=== PATIENT | female | born 1960 ===

== ENCOUNTER 2019-03-08 16:02 | Outpatient (REF) | payer BC, SELFPAY ==
--- NOTE | 2019-03-08 15:20 | PAPFT_PTH ---
PATIENT: DARREN MAY LOC: [facility] U#:[id number] AGE/SX: 58/F ROOM: RE03/08/[address]: Cynthia Lamar : 1960 BED: DIS: 03/08/2019 SPEC #: [id number] RECD: 03/08/19 17:50 STATUS: DENY REKinsey #: [id number] CHUCKY: 03/08/19 15:[address]: Cynthia Lamar DEPT: [facility] Cytology RECD BY: Kaity Lozano Tissues: 1 - CX/ENDOCX FOR PAP SMEARS Procedures: PAP THIN PREP/[facility] Screening HPV DNA PROBE Comments: [id number]
--- NOTE | 2019-03-08 15:20 | ENDOMET_PTH ---
PATIENT: DARREN MAY LOC: [facility] U#:[id number] AGE/SX: 58/F ROOM: RE03/08/[address]: Cynthia Lamar : 1960 BED: DIS: 03/08/2019 SPEC #: [id number] RECD: 03/08/19 17:46 STATUS: DENY REQ #: [id number] CHUCKY: 03/08/19 15:[address]: Cynthia Lamar DEPT: Surgical Specimen RECD BY: Kaity Lozano Tissues: 1 - ENDOMETRIUM BX/NIKKO Procedures: GROSS AND MICRO LEVEL 4 Comments: [id number]
== END 2019-03-08 16:22 ==
LOC: LBN 16:02
PROVIDERS: Visit Provider Obstetrics & Gynecology Gynecology
DX: N85.8 Other specified noninflammatory disorders of uterus (principal); N95.0 Postmenopausal bleeding; Z12.4 Encounter for screening for malignant neoplasm of cervix; Z11.51 Encounter for screening for human papillomavirus (HPV)
CPT/HCPCS: 88142; 88305; 87624